=== PATIENT | male | born 1935 | race Caucasian/White ===

== ENCOUNTER 2016-06-30 19:52 | Emergency (ER) | payer MEDICARE ==
[2016-06-30 20:18] LABS: HEMOGLOBIN 8.9 gm/dl (14.0-17.5); RED BLOOD COUNT 2.8 M/UL (4.20-5.50)
[2016-06-30 20:44] LABS: BUN/CREATININE RATIO 16 (0-10)
== END 2016-07-01 03:00 | disposition other institution (70) ==
LOC: ER1 19:52
PROVIDERS: Family Medicine
DX: K92.1 Melena (principal); D64.9 Anemia, unspecified; R10.32 Left lower quadrant pain; I51.9 Heart disease, unspecified; Z79.82 Long term (current) use of aspirin; Z87.891 Personal history of nicotine dependence; Z88.2 Allergy status to sulfonamides; Z95.5 Presence of coronary angioplasty implant and graft; Z79.899 Other long term (current) drug therapy; R42 Dizziness and giddiness; R53.1 Weakness
CPT/HCPCS: 36415; 80053; 81001; 82150; 82248; 82272; 82550; 82553; 83605; 83690; 83874; 84484; 85025; 85610; 85730; 86850; 86900; 86901; 93005; 96361; 96374; 96375; 99285; C9113; J2405

== ENCOUNTER 2016-08-19 21:12 | Emergency (ER) | payer MEDICARE | END 2016-08-20 00:47 | disposition home or self-care (01) | LOC: ER1 21:12 | DX: S91.332A Puncture wound without foreign body, left foot, initial encounter (principal); F17.210 Nicotine dependence, cigarettes, uncomplicated; Z88.2 Allergy status to sulfonamides; C85.90 Non-Hodgkin lymphoma, unspecified, unspecified site; F32.9 Major depressive disorder, single episode, unspecified; E78.00 Pure hypercholesterolemia, unspecified; I25.10 Atherosclerotic heart disease of native coronary artery without angina pectoris; I21.3 ST elevation (STEMI) myocardial infarction of unspecified site; W45.0XXA Nail entering through skin, initial encounter | CPT/HCPCS: 73630; 99283 ==